=== PATIENT | female | born 1975 | race Caucasian/White ===

== ENCOUNTER 2019-04-04 14:45 | Emergency (ER) | payer BC ==
[2019-04-04 15:35] LABS: URINE BLOOD (Dip) POC Trace-lysed (NEGATIVE); URINE GLUCOSE (Dip) POC Negative (NEGATIVE); URINE KETONES (Dip) POC Negative (NEGATIVE); URINE LEUKOCYTE EST (Dip) POC 1+ (NEGATIVE); URINE NITRITE (Dip) POC Negative (NEGATIVE); URINE TOTAL PROTEIN POC Negative (NEGATIVE)
== END 2019-04-04 16:13 | disposition home or self-care (01) ==
LOC: FTE 14:45
DX: A60.09 Herpesviral infection of other urogenital tract (principal); N39.0 Urinary tract infection, site not specified
CPT/HCPCS: 81003; 81025; 99283

== ENCOUNTER 2019-05-16 19:46 | Emergency (ER) | payer BC ==
[2019-05-16] MEDS: KETOROLAC 60 MG INJ IM (21:25)
[2019-05-16] MEDS: ONDANSETRON 4 MG INJ IV (21:25)
[2019-05-16] MEDS: SOD CHLORIDE 0.9% 1,000 ML IV (21:26)
[2019-05-16] MEDS: PROCHLORPERAZINE 10 MG INJ IV (22:00)
== END 2019-05-16 22:52 | disposition home or self-care (01) ==
LOC: FTE 19:46
DX: R51 Headache (principal)
CPT/HCPCS: 70450; 81025; 96361; 96372; 96374; 99285-25